=== PATIENT | female | born 1975 | race Caucasian/White ===

== ENCOUNTER 2017-05-24 04:06 | Day surgery (SDC) | payer MEDICARE, OTHER ==
--- NOTE | ~2017-05-24 | OP ---
Record Of Operation [facility] [address] [place]. [address] NAME: ANAYELI SUNG : 77 STATUS : [facility]#: [id number] AGE: 42 ADM/REG DATE : 05/24/17 MR#: [id number] REPORT SERV DATE: 05/24/17 DICTATED BY: GAYLE SENIOR DATE: 05/24/17 REPORT STATUS : Draft TRANSCRIBED BY: MODAilyn DATE: 05/24/17 DATE OF PROCEDURE: 05/24/2017 PREOPERATIVE DIAGNOSIS: Right knee chondromalacia patella. 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 CHARGE WEIGHER: See chart. DESCRIPTION OF PROCEDURE: The patient was taken to the operating room and placed supine on the table in normal fashion without incident. General anesthetic was induced per the anesthesiologist. The patient was carefully positioned, padded, prepped, and draped in a sterile fashion. After prophylactic preoperative antibiotics, two standard cross ports were placed, medial one under direct visualization. A spine needle examination revealed chondromalacia patella, stage III; patellofemoral sulcus, stage III; medial tibial plateau, stage II. Lateral release was done for lateral subluxation as verified on the MRI with a coag type device through the lateral retinacular fibers. The rest of the knee was carefully probed to be sure there were no further lesions. Before and after pictures were taken. Instruments were removed and wounds were dressed sterilely. The patient was awakened and taken to the postanesthesia care unit without incident. COMPLICATIONS: None. SPECIMENS: None. ESTIMATED BLOOD LOSS: Trace. KENYB/MODAilyn Roni Senior M.D. / [id number] CC: Doroteo Acosta DAVID
[~2017-05-24 04:06] MED LIST: ATEN50 PO; ENDOCET1 TA3 PO; GLUCPH PO; KDUR20 PO; LORTAB10 PO; MAX25 PO; MSCONT15 PO; NEUR300 PO; NITROSTAT0.4 MG SL; PRILOSEC40 MG PO; PRIN10 PO; PRIN5 PO; PROAIR HFA INH; SYN.025B PO; TRICOR48 PO; VENTOLIN HFA INH; VITE PO; XANAX1 MG PO; ZYP5 PO
[2017-05-24 05:52] LABS: HEMOGLOBIN 14.7 g/dL (12.0-16.0)
[2017-05-24 05:54] LABS: HEMATOCRIT 44.4 % (36.0-48.0)
== END 2017-05-24 12:33 | disposition home or self-care (01) ==
LOC: SDC 04:06
PROVIDERS: Specialist
PROC: 0MNN4ZZ Release Right Knee Bursa and Ligament, Percutaneous Endoscopic Approach (ICD-10-PCS; principal; 2017-05-24 05:45)
DX: S83.011A Lateral subluxation of right patella, initial encounter (principal); M22.41 Chondromalacia patellae, right knee; K21.9 Gastro-esophageal reflux disease without esophagitis; I10 Essential (primary) hypertension; E78.00 Pure hypercholesterolemia, unspecified; E11.9 Type 2 diabetes mellitus without complications; J45.909 Unspecified asthma, uncomplicated; E03.9 Hypothyroidism, unspecified; F41.8 Other specified anxiety disorders; F17.210 Nicotine dependence, cigarettes, uncomplicated; Z90.49 Acquired absence of other specified parts of digestive tract; Z90.89 Acquired absence of other organs; Z90.710 Acquired absence of both cervix and uterus; Z98.51 Tubal ligation status; Z98.890 Other specified postprocedural states; Z86.69 Personal history of other diseases of the nervous system and sense organs; Z88.6 Allergy status to analgesic agent; Z88.5 Allergy status to narcotic agent; Z88.8 Allergy status to other drugs, medicaments and biological substances; Z91.040 Latex allergy status; Z79.84 Long term (current) use of oral hypoglycemic drugs; Z79.891 Long term (current) use of opiate analgesic; Z79.899 Other long term (current) drug therapy; X58.XXXA Exposure to other specified factors, initial encounter
CPT/HCPCS: 82962; 85014; 85018; A9270-GY; J0360; J0690; J1170; J2250; J2274; J2405; J2710; J3010